=== PATIENT | female | born 1955 | race African-American/Black ===

== ENCOUNTER 2016-08-28 11:09 | Observation (INO) | payer BC ==
--- NOTE | ~2016-08-28 | HP ---
History And Physical [id number] [place]. [address] NAME: KENNETH ALEX : 59 STATUS : ADM IN [facility]#: [id number] AGE: 61 ADM/REG DATE : 08/28/16 MR#: [id number] REPORT SERV DATE: 08/29/16 DICTATED BY: SHRAVAN HAYWOOD DATE: 08/28/16 REPORT STATUS : Draft TRANSCRIBED BY: MODL DATE: 08/28/16 DATE OF ADMISSION: 08/28/2016 REASON FOR CONSULTATION: Left flank pain. HISTORY OF PRESENT ILLNESS: Ms. Alex is a very pleasant 61-year-old female with a one- day onset of severe left flank pain. She endorses nausea and vomiting. She has chills. She does has not have a fever. She denies dysuria, hematuria. She does not smoke. She has no prior history of stones. She has no family history of genitourinary malignancy. In the ER, she was found to have severe pain and a 3 mm and 1 mm stone in her left ureter with severe perinephric stranding consistent with a forniceal rupture. Her pain is uncontrolled with oral pain medication. She has no fever. A CT scan demonstrated the above findings. I have been asked to consult. PAST MEDICAL HISTORY: Hypertension. PAST SURGICAL HISTORY: Hysterectomy. ALLERGIES: NO KNOWN DRUG ALLERGIES. MEDICATIONS: Reviewed and listed on the chart. FAMILY HISTORY: Noncontributory. SOCIAL HISTORY: She does not smoke, drink, or use illegal drugs. REVIEW OF SYSTEMS: A 12-point review of systems was performed. Pertinent positives are listed in the HPI. PHYSICAL EXAMINATION: VITAL SIGNS: Her temperature on exam is 98.7, pulse 80, blood pressure 200/110, saturation 100% on room air, respirations are 19. GENERAL: She is in clear pain. She appears stated age. HEENT: Her head is normocephalic and atraumatic. RESPIRATORY: Breathing nonlabored. She is not in respiratory distress. HEART: Pulse is regular in rate and rhythm. ABDOMEN: Soft, nontender, nondistended. She has left CVA tenderness. NEURO: She is alert and oriented x3. EXTREMITIES: There is no cyanosis or edema. LABORATORY DATA: Her white count is 8.9, hemoglobin 13.8, creatinine is 1.04. Electrolytes are within normal limits. Urinalysis is negative for infection. IMAGING: CT scan of the abdomen and pelvis without contrast. I was first interpreted and reviewed by myself. She has a 3 mm left UVJ stone and 1 mm stone at the pelvic inlet. She has renal swelling with some perinephric stranding consistent with a forniceal rupture. History And Physical [address] [address] NAME: KENNETH ALEX : 59 STATUS : ADM IN PAT#: [id number] AGE: 61 ADM/REG DATE : 08/28/16 MR#: [id number] REPORT SERV DATE: 08/29/16 DICTATED BY: SHRAVAN HAYWOOD DATE: 08/28/16 REPORT STATUS : Draft TRANSCRIBED BY: REJI DATE: 08/28/16 ASSESSMENT AND PLAN: Ms. Alex has severe flank pain and forniceal rupture from an obstructing left ureteral stone. She has failed conservative management. We will put her in the hospital for pain control and hydration. We will plan treating her stone urgently in the morning with ureteroscopy, laser lithotripsy, and stent placement. The risks and benefits of these were extensively explained to the patient. The emergency department will work on getting her blood pressure under control, which I think will become easier once her pain is controlled. Operative planning have been initiated. ILIANA/REJI Shravan Haywood MD / [id number] CC: MD ARIEL Lopez CHELSEA BIANCA
--- NOTE | ~2016-08-28 | OP ---
Record Of Operation [facility] [address] [facility] [place]. [address] NAME: KENNETH ALEX : 59 STATUS : ADM Heather PAT#: [id number] AGE: 61 ADM/REG DATE : 08/28/16 MR#: [id number] REPORT SERV DATE: 08/29/16 DICTATED BY: SHRAVAN HAYWOOD DATE: 08/29/16 REPORT STATUS : Draft TRANSCRIBED BY: MODL DATE: 08/29/16 DATE OF PROCEDURE: 08/29/2016 SURGEON: Shravan Haywood MD. TITLES OF OPERATION: 1. Cystourethroscopy. 2. Left retrograde pyelogram. 3. Left ureteroscopy with laser incision and balloon dilation of distal left ureteral stricture. 4. Placement of 6 x 24 OPTIMA INLAY left ureteral stent without tether. PREOPERATIVE DIAGNOSIS: Left ureteral stone with forniceal rupture. POSTOPERATIVE DIAGNOSES: 1. Left ureteral stone with forniceal rupture. 2. Distal ureteral stricture. INDICATIONS: Ms Alex is a 61-year-old female, who was admitted from the ER last night. She has a distal ureteral stone with forniceal rupture and severe pain. She is here for ureteroscopy. ANESTHESIA: General. COMPLICATIONS: None. IMPLANT: 6 x 24 left ureteral stent. SPECIMENS: None. NARRATIVE: The patient was brought to the operating room, identified by a wristband. General anesthesia was induced, and Levaquin was given for preoperative antibiotics. She was placed in dorsal lithotomy position, prepped and draped in sterile fashion. A cystoscope was placed into her urethra and into her bladder. The bladder was normal. There were no tumors. The left ureteral orifice was identified and cannulated with a Sensor wire. A 5[place] open-ended catheter was placed over the wire into the distal ureter. I could not advance the 5[place] catheter over the wire past the distal ureter. At this time, I shot a retrograde pyelogram which showed severe narrowing of the distal left ureter. A 5[place] catheter was removed. A rigid ureteroscope was placed alongside the wire. A ureteral stricture was encountered. I decided to stop and place a stent. I attempted to place a 6 x 26 OPTIMA INLAY stent over a wire. The stent would not pass beyond the stricture. I exchanged the wire for a super stiff wire. Still the stent would not pass. I tried passing a 5[place] stent, and this would not pass either. I attempted to dilate the ureter using ureteral dilators, and even the smallest dilator could not pass beyond the stricture. The wire was clearly within the lumen of the ureter based on a retrograde pyelogram and visual inspection. At this time, the rigid ureteroscope was placed alongside the wire again, and Record Of Operation [place] [address] [place]. [address] NAME: KENNETH ALEX : 59 STATUS : ADM Heather PAT#: [id number] AGE: 61 ADM/REG DATE : 08/28/16 MR#: [id number] REPORT SERV DATE: 08/29/16 DICTATED BY: SHRAVAN HAYWOOD DATE: 08/29/16 REPORT STATUS : Draft TRANSCRIBED BY: REJI DATE: 08/29/16 using a 200 micron laser, the stricture was lasered at the 5 and 7 o'clock positions. This opened the stricture somewhat. A ureteral dilating balloon was then placed over the wire to the level of the stricture and the balloon was inflated to 8 mmHg under fluoroscopic guidance. At this time, the ureter was patent. A retrograde pyelogram was shot again which showed no extravasation. A 6 x 24 OPTIMA INLAY left ureteral stent was then placed. The proximal coil was in the renal pelvis under fluoroscopic guidance. Distal coil was in the bladder under direct vision. The patient will be discharged home later on today. I will plan on leaving the stent for a month and then re-scoping her to see if this is healed. Also, if this is not healed, she will need a ureteral reimplantation. ILIANA/REJI Shravan Haywood MD / [id number] CC: MD Alvin Lopez M.D.
[2016-08-28 11:50] LABS: BASOPHILS 0.1 %; BASOPHILS ABSOLUTE 0.01 10/3/uL (0.0-0.16); EOSINOPHILS 0 %; HEMATOCRIT 41.2 % (36.0-48.0); HEMOGLOBIN 13.8 g/dL (12.0-16.0); IMMATURE GRANULOCYTES 0.2 %; IMMATURE GRANULOCYTES ABSOLUTE 0.02 10/3/uL (0.0-0.11); LYMPHOCYTES 10.1 %; MEAN CORPUS HGB CONC 33.5 g/dL (32.0-36.0); MEAN CORPUSCULAR HEMOGLOB 28.9 pg (26.0-34.0); MEAN PLATELET VOLUME 9.6 fL (9.2-13.0); MONOCYTES 3.9 %; MONOCYTES ABSOLUTE 0.35 10/3/uL (0.21-1.20); NEUTROPHILS 85.7 %; NEUTROPHILS ABSOLUTE 7.61 10/3/uL (2.02-8.40); PLATELET COUNT 246 10/3/uL (150-400); RED CELL COUNT 4.78 10/6/uL (4.0-5.6)
[2016-08-28 11:51] LABS: ER CBC TAT 0 Hrs 07 Mins; MANUAL DIFF NO %; MEAN CORPUSCULAR VOLUME 86.2 fL (80-100); WHITE BLOOD CELLS 8.9 10/3/uL (4.5-10.5)
[2016-08-28 12:04] LABS: ASCORBIC ACID (UR NOT ORDER) NEG (NEG); BILIRUBIN, URINE NEGATIVE (NEG); ER URINALYSIS TAT 0 Hrs 20 Mins; KETONE, URINE TRACE MG/DL (NEG); LEUKOCYTE ESTERASE(NOT OR NEG (NEG); NITRITE (URINE) NEG (NEG); WBC (NOT ORDERED) (RFLEX) 2 (0-5)
[2016-08-28 12:05] LABS: A/G RATIO 1.1 (0.7-1.9); ALBUMIN 4.1 G/DL (3.5-5.0); ALKALINE PHOSPHATASE 95 U/L (45-117); BUN (BLOOD UREA NITROGEN) 12 MG/DL (6-23); CHLORIDE, SERUM 107 MMOL/L (96-112); CO2 (CARBON DIOXIDE) 29 MMOL/L (24-34); CREATININE 1.04 MG/DL (0.55-1.02); DIRECT BILIRUBIN 0.2 MG/DL (0.0-0.4); GFR AFRICAN AMERICAN 68 ML/MIN (>=60); GFR NON AFRICAN AMERICAN 59 ML/MIN (>=60); GLOBULIN 3.8 G/DL (2.5-4.1); GLUCOSE, SERUM 121 MG/DL (60-99); POTASSIUM, SERUM 3.8 MMOL/L (3.5-5.3); SGOT(AST) 22 U/L (5-40); SGPT(ALT) 19 U/L (5-65); SODIUM, SERUM 143 MMOL/L (135-148); TOTAL BILIRUBIN 1.2 MG/DL (0-1.2); TOTAL PROTEIN 7.9 G/DL (6.0-8.5)
[2016-08-28] MEDS ORDERED: COZ50 PO (15:11)
[2016-08-29 06:18] LABS: BASOPHILS 0.3 %; BASOPHILS ABSOLUTE 0.02 10/3/uL (0.0-0.16); EOSINOPHILS 1.1 %; EOSINOPHILS ABSOLUTE 0.08 10/3/uL (0.0-0.53); HEMATOCRIT 39.5 % (36.0-48.0); HEMOGLOBIN 13.1 g/dL (12.0-16.0); IMMATURE GRANULOCYTES 0.1 %; IMMATURE GRANULOCYTES ABSOLUTE 0.01 10/3/uL (0.0-0.11); LYMPHOCYTES 34.3 %; LYMPHOCYTES ABSOLUTE 2.55 10/3/uL (0.67-4.30); MANUAL DIFF NO %; MEAN CORPUS HGB CONC 33.2 g/dL (32.0-36.0); MEAN CORPUSCULAR VOLUME 87.4 fL (80-100); MEAN PLATELET VOLUME 9.7 fL (9.2-13.0); MONOCYTES 9.3 %; MONOCYTES ABSOLUTE 0.69 10/3/uL (0.21-1.20); NEUTROPHILS 54.9 %; NEUTROPHILS ABSOLUTE 4.09 10/3/uL (2.02-8.40); PLATELET COUNT 230 10/3/uL (150-400); RBC DISTRIBUTION WIDTH 13.3 % (12.0-16.0); RED CELL COUNT 4.52 10/6/uL (4.0-5.6); WHITE BLOOD CELLS 7.4 10/3/uL (4.5-10.5)
[2016-08-29 06:34] LABS: ALBUMIN 3.3 G/DL (3.5-5.0); BUN (BLOOD UREA NITROGEN) 19 MG/DL (6-23); CALCIUM, SERUM 9.3 MG/DL (8.5-10.4); CHLORIDE, SERUM 105 MMOL/L (96-112); CO2 (CARBON DIOXIDE) 27 MMOL/L (24-34); CREATININE 1.32 MG/DL (0.55-1.02); GFR AFRICAN AMERICAN 51 ML/MIN (>=60); GFR NON AFRICAN AMERICAN 44 ML/MIN (>=60); GLUCOSE, SERUM 114 MG/DL (60-99); PHOSPHORUS, SERUM 3.5 MG/DL (2.5-4.5); POTASSIUM, SERUM 3.8 MMOL/L (3.5-5.3); SODIUM, SERUM 138 MMOL/L (135-148)
[2016-08-29] MEDS ORDERED: BACTRIM DS1 TAB PO (17:50)
[2016-08-29] MEDS ORDERED: PCET PO (17:51)
[2016-09-24] MEDS ORDERED: MULTIPLE VIT PO (16:57)
== END 2016-08-29 19:16 | disposition home or self-care (01) ==
LOC: ER 11:09 → 4SO 17:35
PROVIDERS: Emergency Medicine; Urology
PROC: 0T778DZ Dilation of Left Ureter with Intraluminal Device, Via Natural or Artificial Opening Endoscopic (ICD-10-PCS; 2016-08-29)
PROC: 0T778DZ Dilation of Left Ureter with Intraluminal Device, Via Natural or Artificial Opening Endoscopic (ICD-10-PCS; principal; 2016-08-29 06:45)
DX: N13.5 Crossing vessel and stricture of ureter without hydronephrosis (principal); N20.1 Calculus of ureter; I10 Essential (primary) hypertension; Z90.710 Acquired absence of both cervix and uterus; Z79.899 Other long term (current) drug therapy
CPT/HCPCS: 74176; 74420; 80053; 80069; 81001; 82248; 83690; 85025; 96374; 96375; 96376; 99291; A9270-GY; C1726; C1758; C1769; C2617; G0378; J1170; J1885; J1956; J2250; J2405; J2550; J2710; J3010; Q9967

== ENCOUNTER 2016-09-30 06:29 | Day surgery (SDC) | payer BC ==
[2016-09-20 17:41] LABS: HEMATOCRIT 35.6 % (36.0-48.0); HEMOGLOBIN 11.4 g/dL (12.0-16.0)
[2016-09-20 17:48] LABS: BUN (BLOOD UREA NITROGEN) 13 MG/DL (6-23); CALCIUM, SERUM 9.1 MG/DL (8.5-10.4); CHLORIDE, SERUM 107 MMOL/L (96-112); CO2 (CARBON DIOXIDE) 30 MMOL/L (24-34); CREATININE 0.76 MG/DL (0.55-1.02); GFR AFRICAN AMERICAN 100 ML/MIN (>=60); GFR NON AFRICAN AMERICAN 86 ML/MIN (>=60); GLUCOSE, SERUM 83 MG/DL (60-99); POTASSIUM, SERUM 3.6 MMOL/L (3.5-5.3); SODIUM, SERUM 142 MMOL/L (135-148)
[2016-09-20 17:54] LABS: ASCORBIC ACID (UR NOT ORDER) NEG (NEG); BILIRUBIN, URINE NEGATIVE (NEG); KETONE, URINE NEGATIVE (NEG); LEUKOCYTE ESTERASE(NOT OR LARGE (NEG); WBC (NOT ORDERED) (RFLEX) 40 (0-5)
--- NOTE | ~2016-09-30 | OP ---
Record Of Operation [facility] [address] [place]. [address] NAME: KENNETH ALEX : 59 STATUS : [facility]#: [id number] AGE: 61 ADM/REG DATE : 09/30/16 MR#: [id number] REPORT SERV DATE: 09/30/16 DICTATED BY: SHRAVAN HAYWOOD DATE: 09/30/16 REPORT STATUS : Draft TRANSCRIBED BY: REJI DATE: 09/30/16 DATE OF PROCEDURE: 09/30/2016 TITLE OF OPERATION: Cystourethroscopy, removal of left ureteral stent, left ureteroscopy with basket extraction of left ureteral stone. PREOPERATIVE DIAGNOSIS: Left ureteral stone. POSTOPERATIVE DIAGNOSIS: Left ureteral stone. INDICATIONS: Ms. Alex is a very pleasant 61-year-old female, history of a distal left ureteral stone. A tight distal ureter. She previously underwent ureteral stent placement. She has had about a month to allow her ureter to dilate. She is here for a second-look ureteroscopy. ANESTHESIA: General. COMPLICATIONS: None. IMPLANTS: None. SPECIMEN: Left ureteral stone. NARRATIVE: The patient was brought to the operating room, identified by wristband. General anesthesia was induced and Levaquin was given for preoperative antibiotics. She was placed in the dorsal lithotomy position, prepped and draped in sterile fashion. A cystoscope was placed into her urethra and into her bladder. The left ureteral stent was seen. It was grasped with flexible grasper and removed. The stent was cannulated with a Sensor wire up to the level of the renal pelvis. The old stent was removed. A flexible ureteroscope was placed easily over the wire to the renal pelvis. The wire was removed. The kidney was inspected. There were no stones in the kidney. A 2 mm left ureteral stone was seen, it was grasped with the engage basket and removed. The distal left ureter was still little tight, but was not concerning for impending obstruction. Therefore, decision was made to not leave a stent. The scope was removed. The bladder was drained. The patient was awoken from anesthesia and transferred to the recovery room in stable condition. I will see her back on an as-needed basis. ILIANA/REJI Shravan Haywood MD / [id number] Record Of [place] [address] [place] [address] NAME: KENNETH ALEX : 59 STATUS : [facility] PAT#: [id number] AGE: 61 ADM/REG DATE : 09/30/16 MR#: [id number] REPORT SERV DATE: 09/30/16 DICTATED BY: SHRAVAN HAYWOOD DATE: 09/30/16 REPORT STATUS : Draft TRANSCRIBED BY: REJI DATE: 09/30/16 CC: MD Alvin Lopez M.D.
[~2016-09-30 06:29] MED LIST: BACTRIM DS1 TAB PO; COZ50 PO; MULTIPLE VIT PO; PCET PO
[2016-10-04 15:45] LABS: STONE COMPOSITION TWO DNR (())
== END 2016-09-30 13:08 | disposition home or self-care (01) ==
LOC: SDC 06:29
PROVIDERS: Urology
PROC: 0TP98DZ Removal of Intraluminal Device from Ureter, Via Natural or Artificial Opening Endoscopic (ICD-10-PCS; principal; 2016-09-30 07:45)
DX: N20.1 Calculus of ureter (principal); I10 Essential (primary) hypertension; Z79.899 Other long term (current) drug therapy; Z98.890 Other specified postprocedural states; Z90.711 Acquired absence of uterus with remaining cervical stump
CPT/HCPCS: 74420; 80048; 81001; 82365; 85014; 85018; 87086; 93005; J2250; J2405; J2710; J3010; Q9967